=== PATIENT | female | born 2000 | race Caucasian/White ===

== ENCOUNTER 2024-07-27 07:39 | Emergency (ER) | payer OTHER ==
[~2024-07-27] VITALS: Ht 152.4 cm; Wt 88.6 kg
[2024-07-27 08:20] VITALS: BP 116/74; PULSE 93; RESP 17; TEMP 98.6; O2SAT 97
--- NOTE | 2024-07-27 08:34 | ED.PDOC ---
SOB-HPI HPI Comments 24 year old presents for URI symptoms. C/o cough x 2 weeks that is non productive Diarrhea x 3 days. No blood. Averages 3 loose stools. Taking OTC bepto. 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) PE Risk Factors: None History of: None Associated Signs and Symptoms: Nasal Congestion, Sore Throat Past Medical History PAST MEDICAL HISTORY: Denies Surgical History: Denies all surgeries [employer] History: Denies all [employer] Hx Family History Family History: Reviewed,noncontributory to illness Social History Smoker: Non-Smoker Alcohol: Denies ETOH Use Drugs: Denies Drug Use All Other Systems: Reviewed and Negative (per hpi) Physical Exam General Appearance: No Apparent Distress, Normal HEENT: Normal ENT Inspection, Pharynx Normal, TMs Normal Neck: Full Range of Motion, Non-Tender, Normal, Normal Inspection Respiratory: Chest Non-Tender, Lungs Clear, No Accessory Muscle Use, No Respira tory Distress, Normal Breath Sounds Cardiovascular: No Edema, No JVD, No Murmur, No Gallop, Normal Peripheral Pulses, Regular Rate/Rhythm Breast Exam: Deferred Gastrointestinal: No Organomegaly, Non Tender, No Pulsatile Mass, Normal Bowel Sounds, Soft Genitalia: Deferred Pelvic: Deferred Rectal: Deferred Extremities: No calf tenderness, Normal capillary refill, Normal inspection, Normal range of motion, Non-tender, No pedal edema Musculoskeletal : Apperance: Normal Neurologic: Alert, shrimp trawler II-XII nml as Tested, No Motor Deficits, Normal Affect, Normal Mood, No Sensory Deficits Cerebellar Function: Normal Reflexes: Normal Skin: Dry, Normal Color, Warm Lymphatic: No Adenopathy Was a procedure done? Was a procedure done?: No Differential Dx Differential Diagnosis: URI X-Ray, Labs, Meds, VS Vital Signs Date Time Temp Pulse Resp B/P (MAP) Pulse Ox O2 Delivery O2 Flow Rate FiO2 07/27/24 08:20 98.6 93 17 116/74 (88) 97 98.6 07/27/24 08:14 107 21 96 Room Air 07/27/24 07:56 98.6 93 17 116/74 (92) 97 98.6 Current Medications Medications (Trade) Dose Ordered Sig/Jag Route Start Time Stop Time Status Last Admin Ondansetron HCl (Zofran Po) 4 mg ONCE ONCE PO 07/27/24 08:45 07/27/24 08:55 DC 07/27/24 09:00 X-Ray, Labs, Meds, VS Comment The patient's daughter presents with pneumonia based on show decision-making mother agreed to empiric treatment as well since they live in the same household The patient is overall well-appearing and does not appear to be clinically toxic. Therefore, the patient is a good candidate for outpatient treatment. The patient was given Antibiotics to treat for pneumonia. The patient was reassessed throughout the ED visit and remained stable. The patient did not require any supplemental oxygen while in the ED. The patient was able to ambulate as well as tolerate p.o. intake in the ED. discussed the management plan with the patient who was in agreement, strict return precautions to the ED were given On reevaluation, patient had symptomatic improvement. Patient is stable for discharge at this time. External notes reviewed. Test results and diagnostic imaging interpreted. All diagnostic findings, discharge care, education and instructions provided Follow-up with PCP in 2 to 3 days Patient verbalized understanding and agreed to treatment plan Vital signs stable, afebrile, no acute distress noted Patient ambulatory with strong steady gait Advised to return precautions for any new or worsening symptoms, return to ER immediately for re-evaluation Patient is aware that the purpose of this visit was for an acute medical emergency requiring emergent stabilization. Chronic conditions, including malignancies have not been ruled out. Patient is instructed to follow up with PCP as directed and discharge instructions for continued care and workup. If unable to arrange follow-up, patient is to return to the emergency department for reassessment. Patient (parent or legal guardian if applicable) was given verbal and written discharge instructions and acknowledges understanding. Time of 1ST Reevaluation: 08:32 Reevaluation 1ST: Improved Patient Education/Counseling: Diagnosis, Treatment Family Education/Counseling: Diagnosis, Treatment Departure 1 Departure Time of Disposition: 10:07 Impression: Primary Impression: Nausea Additional Impression: PNA (pneumonia) Qualified Codes: J18.9 - Pneumonia, unspecified organism Disposition: HOME / SELF CARE / HOMELESS Condition: Stable e-Prescriptions Ondansetron HCl (Ondansetron) 4 Mg Tab 4 MG PO Q8HP PRN for 3 Days, #9 TAB 0 Refills Prov: JEANNE RIGGS NP 07/27/24 Amoxicillin & Pot Clavulanate (AUGMENTIN TABLET) 875 Mg Tb 875 MG PO BID for 7 Days, #14 TAB 0 Refills Prov: JEANNE RIGGS [employer] 07/27/24 Discharged With: Self Critical Care Note Critical Care Time?: No Stability Stability form required: No Heart Score Heart Score: Heart Score Response (Comments) Value History N/A 0 EKG N/A 0 Age N/A 0 Risk Factors N/A 0 Troponin N/A 0 Total 0 JEANNE RIGGS [employer] Jul 27, 2024 08:34
[2024-07-27] MEDS: ONDANSETRON ODT 4 MG TAB PO ONE (09:00)
[2024-07-27] MEDS ORDERED: AUG875T PO (10:08)
[2024-07-27] MEDS ORDERED: ONDA-155 PO (10:08)
== END 2024-07-27 10:21 | disposition home or self-care (01) ==
LOC: ER 07:39
DX: J18.9 Pneumonia, unspecified organism (principal); R11.0 Nausea
CPT/HCPCS: 99283; Q0162